=== PATIENT | female | born 1995 | race Caucasian/White ===

== ENCOUNTER 2023-11-13 02:40 | Emergency (ER) | payer OTHER, SELFPAY ==
[2023-11-13 02:41] VITALS: BP 128/93; PULSE 70; RESP 14; TEMP 36.1; O2SAT 99
[2023-11-13 03:20] LABS: Basophils Percent Auto 0.8 % (0.2-1.2); Eosinophils Absolute Auto 0.4 K/mm3 (0-0.3); Eosinophils Percent Auto 8.5 % (0-4.4); Hematocrit 36.3 % (37.0-47.0); Hemoglobin 11.3 g/dL (12.0-15.0); Immature Granulocyte Absolute 0.01 K/mm3 (0.00-0.031); Immature Granulocyte Percent A 0.2 % (0-0.5); Lymphocytes Absolute Auto 1.66 K/mm3 (0.9-3.2); Lymphocytes Percent Auto 33.5 % (18.3-44.2); Mean Corpuscular HGB Conc 31.1 g/dl (32-36); Mean Corpuscular Hemoglobin 26.2 pg (26-34); Mean Platelet Volume 12.3 fl (7.4-10.4); Monocytes Absolute Auto 0.3 K/mm3 (0.1-0.6); Monocytes Percent Auto 6.5 % (2.6-8.5); Neutrophils Absolute Auto 2.5 K/mm3 (1.3-6.7); Neutrophils Percent Auto 50.5 % (45.5-73.1); Platelet Count Result 196 k/mm3 (150-375); Red Blood Count 4.32 M/mm3 (4.2-5.4); Red Cell Distribution Width 15.4 % (11.5-14.5)
[2023-11-13 03:21] LABS: BEDSIDEPREGUCG Negative
[2023-11-13 03:29] LABS: Alanine Aminotransferase 14 U/L (6-35); Albumin Level 4.4 g/dL (3.5-5.1); Alkaline Phosphatase 59 U/L (38-126); Anion Gap 10 mmol/L (4-12); Aspartate Amino Transferase 28 U/L (14-36); Bilirubin,Total 0.4 mg/dL (0.2-1.3); Blood Urea Nitrogen 14 mg/dL (7-17); Calcium 9.2 mg/dL (8.4-10.2); Carbon Dioxide 29 mmol/L (22-30); Chloride 104 mmol/L (98-107); Estimated CRCL calculation 109 ml/min; Estimated Glomerular Filt Rate > 60; Glucose 90 mg/dL (65-110); Potassium 3.8 mmol/L (3.4-5.0); Sodium 143 mmol/L (137-145)
[2023-11-13 03:46] LABS: Beta HCG Quantitative < 2.39 mIU/ML
[2023-11-13 07:19] VITALS: BP 106/67; PULSE 79; RESP 20; O2SAT 97
[2023-11-13 07:32] LABS: Prothrombin Time 13.4 Seconds (11.1-14.7)
[2023-11-13 07:33] LABS: Partial Thromboplastin Time 27.3 Seconds (22.3-36.8)
--- NOTE | 2023-11-13 07:37 | ED.GENADULT ---
HPI - General Adult General Chief complaint: Unspecified Stated complaint: POSSIBLE MISCARRIAGE Time Seen by Provider: 11/13/23 06:54 History of Present Illness HPI narrative: 28-year-old female presents to the emergency department for evaluation for tooth pain and alcohol intoxication. Patient states he does have chronic tooth pain but this has been worsening. Patient states the worsening dental pain causes her to drink more alcohol. At time of evaluation patient was alert and appropriate and requesting discharge to home. Related Data Allergies Allergy/AdvReac Type Severity Reaction Status Date / Time lactose Allergy Other Verified 11/13/23 02:53 latex Allergy Rash Verified 11/13/23 02:53 Review of Systems Review of Systems: All systems reviewed & are unremarkable except as noted in HPI and below Exam Narrative: APPEARANCE: Well appearing, no pain, no distress, well-nourished. HEAD: normocephalic, atraumatic. EYES: PERRLA/EOMI, conjunctivae clear. NOSE: Normal no drainage EARS:TMS clear with good light reflex. THROAT: Pharynx clear, no exudate. Mouth: Multiple dental caries NECK: Supple. No adenopathy, no masses. RESPIRATORY: Airway patent, respirations nonlabored. Clear to auscultation bilaterally, no rales, rhonchi, wheezing. CARDIOVASCULAR: Regular rate and rhythm without murmurs rubs or gallops. ABDOMINAL: Soft, nontender, nondistended, normal bowel sounds MUSCULOSKELETAL: Moves all extremities. Strength/ROM intact, No edema, No calf tenderness. NEURO: Alert. Cranial nerves II through XII intact. Good gait. Good coordination SKIN: Warm, dry. Normal Color Course Vital Signs Vital signs: Vital Signs Temperature 97.0 F L 11/13/23 02:41 Pulse Rate 70 11/13/23 02:41 Respiratory Rate 14 11/13/23 02:41 Blood Pressure 128/93 H 11/13/23 02:41 Pulse Oximetry 99 11/13/23 02:41 Oxygen Delivery Room Air 11/13/23 02:41 Temperature 97.6 F 11/13/23 08:00 Pulse Rate 70 11/13/23 08:00 Respiratory Rate 13 11/13/23 08:00 Blood Pressure 98/60 L 11/13/23 08:00 Pulse Oximetry 100 11/13/23 08:00 Oxygen Delivery Room Air 11/13/23 02:41 Medical Decision Making MDM Narrative Medical decision making narrative: 28-year-old female presents to the emergency department for evaluation for alcohol intoxication and dental pain. Patient is afebrile with no leukocytosis and a stable hemoglobin. Patient has no significant abnormalities on her CMP. Patient's beta hCG was negative. At time of re-evaluation patient states she feels improved and does request to be discharged home. Patient was started on antibiotics for tooth pain. Differential Diagnosis Differential Diagnosis: Alcohol intoxication, sepsis, dental pain, dental abscess Vital Signs Vital Signs: Vital Signs Temperature 97.0 F L 11/13/23 02:41 Pulse Rate 70 11/13/23 02:41 Respiratory Rate 14 11/13/23 02:41 Blood Pressure 128/93 H 11/13/23 02:41 Pulse Oximetry 99 11/13/23 02:41 Oxygen Delivery Room Air 11/13/23 02:41 Temperature 97.6 F 11/13/23 08:00 Pulse Rate 70 11/13/23 08:00 Respiratory Rate 13 11/13/23 08:00 Blood Pressure 98/60 L 11/13/23 08:00 Pulse Oximetry 100 11/13/23 08:00 Oxygen Delivery Room Air 11/13/23 02:41 Lab Data Lab results reviewed: Yes I reviewed the patient's lab results. 11/13/23 03:14 11/13/23 03:14 Labs: Lab Results 11/13/23 11/13/23 11/13/23 Range/Units 03:13 03:14 03:17 WBC 5.0 (4.5-10.0) K/mm3 RBC 4.32 (4.2-5.4) M/mm3 Hgb 11.3 L (12.0-15.0) g/dL Hct 36.3 L (37.0-47.0) % MCV 84.0 (80-100) fl MCH 26.2 (26-34) pg MCHC 31.1 L (32-36) g/dl RDW 15.4 H (11.5-14.5) % Plt Count 196 (150-375) k/mm3 MPV 12.3 H (7.4-10.4) fl Immature Gran % (Auto) 0.2 (0-0.5) % Neut % (Auto) 50.5 (45.5-73.1) % Lymph % (Auto) 33.5 (18.3-44.2) % [place] % (Auto) 6.5 (2.6-8.5
[2023-11-13 08:00] VITALS: BP 98/60; PULSE 70; RESP 13; TEMP 36.4; O2SAT 100
== END 2023-11-13 08:00 | disposition home or self-care (01) ==
PROVIDERS: Physician Assistant; Emergency Provider Emergency Medicine
DX: F10.129 Alcohol abuse with intoxication, unspecified (principal); K08.89 Other specified disorders of teeth and supporting structures
CPT/HCPCS: 36415; 80053; 81025; 84702; 85025; 85461; 85610; 85730; 86850; 86900; 86901; 99283